=== PATIENT | female | born 1990 | race Caucasian/White ===

== ENCOUNTER 2020-08-16 07:13 | Outpatient (CLI) | payer OTHER, SELFPAY ==
[2020-08-16 08:27] LABS: Hemoglobin A1C 4.8 % (<5.7)
[2020-08-16 08:30] LABS: Beta HCG Quantitative < 2.39 mIU/ML
[2020-08-16 08:44] LABS: Thyroid Stimulating Hormone 0.624 uIU/mL (0.465-4.680)
[2020-08-18 05:59] LABS: Insulin Level Total 4.2 uIU/mL (<=19.6)
[2020-08-20 17:58] LABS: DHEA-Sulfate 306 mcg/dL (18-391)
[2020-08-21 08:41] LABS: Testosterone Total 57 ng/dL (2-45)
[2020-08-23 04:42] LABS: Prolactin 6.4 ng/mL (***)
== END 2020-08-16 07:14 | disposition home or self-care (01) ==
PROVIDERS: Visit Provider Obstetrics & Gynecology
DX: N91.2 Amenorrhea, unspecified (principal)
CPT/HCPCS: 36415; 82627; 83036; 83498; 83525; 84146; 84403; 84443; 84702

== ENCOUNTER 2020-10-08 07:26 | Outpatient (CLI) | payer OTHER, SELFPAY | END 2020-10-08 07:27 | disposition home or self-care (01) | PROVIDERS: Visit Provider Obstetrics & Gynecology | DX: Z31.41 Encounter for fertility testing (principal) | CPT/HCPCS: 36415; 84144 ==

== ENCOUNTER 2020-11-28 11:41 | Outpatient (CLI) | payer OTHER, SELFPAY ==
[2020-12-02 08:59] LABS: Progesterone 17.7 ng/mL (***)
== END 2020-11-28 11:42 | disposition home or self-care (01) ==
LOC: ANHLAB 11:43
PROVIDERS: Visit Provider Obstetrics & Gynecology
DX: Z31.41 Encounter for fertility testing (principal)
CPT/HCPCS: 36415; 84144

== ENCOUNTER 2021-02-11 12:15 | Outpatient (CLI) | payer OTHER, SELFPAY ==
[2021-02-15 13:53] LABS: Progesterone 0.6 ng/mL (***)
== END 2021-02-11 12:16 | disposition home or self-care (01) ==
LOC: CHSLAB 12:17
PROVIDERS: Visit Provider Obstetrics & Gynecology
DX: Z31.41 Encounter for fertility testing (principal)
CPT/HCPCS: 36415; 84144

== ENCOUNTER 2021-03-25 11:00 | Outpatient (CLI) | payer OTHER, SELFPAY ==
[2021-03-28 07:18] LABS: Progesterone 1.5 ng/mL (***)
== END 2021-03-25 11:01 | disposition home or self-care (01) ==
LOC: CHSLAB 11:02
PROVIDERS: Visit Provider Obstetrics & Gynecology
DX: Z31.41 Encounter for fertility testing (principal)
CPT/HCPCS: 36415; 84144

== ENCOUNTER 2021-05-02 09:21 | Outpatient (CLI) | payer OTHER, SELFPAY ==
[2021-05-05 07:01] LABS: Progesterone 2.8 ng/mL (***)
== END 2021-05-02 09:22 | disposition home or self-care (01) ==
LOC: CHSLAB 09:23
PROVIDERS: Visit Provider Obstetrics & Gynecology
DX: Z31.41 Encounter for fertility testing (principal)
CPT/HCPCS: 36415; 84144

== ENCOUNTER 2023-03-23 13:39 | Observation (INO) | payer BC, SELFPAY ==
[2023-03-23 14:45] VITALS: BP 118/82; PULSE 92
--- NOTE | 2023-03-23 15:00 | OBADM ---
This patient, Toña Rose, admitted to the OB room Labor/Delivery/Recovery 106 for observation. Patient/family oriented to hospital policies and general routines including ID bracelet, bed and alarms, visiting hours, pain management, procedures, bathroom and other care routines, personal items, smoking policy, room service/diet, and visiting hours. Patient/Family are encouraged to report perceived risks to care and to ask questions if they do not understand what they are told or what they should do.
--- NOTE | 2023-04-22 00:04 | PM.OBTRLD ---
OB - Triage/Final Diagnosis Visit Information Comments/Additional reasons for admission: I have assessed the risk for this patient, Toña Rose, and determined that she would benefit from observation care. Final Diagnosis (1) False labor: Code(s): O47.9 - False labor, unspecified Status: Acute
== END 2023-03-23 15:04 | disposition home or self-care (01) ==
LOC: ANHLDR 14:46
PROVIDERS: Admitting Provider Obstetrics & Gynecology; Visit Provider Obstetrics & Gynecology
DX: O47.9 False labor, unspecified (principal); Z3A.40 40 weeks gestation of pregnancy
CPT/HCPCS: G0378; G0379

== ENCOUNTER 2023-03-24 04:42 | Inpatient (IN) | payer BC, SELFPAY ==
[2023-03-24] VITALS (133 sets, daily range): BP systolic 100–145; BP diastolic 54–92; PULSE 48–124; RESP 16; TEMP 36.5–37.3; O2SAT 77–100; BMI 34.7
--- NOTE | 2023-03-24 04:42 | LDADM ---
This patient, Toña Rose, was admitted to Labor/Delivery/Recovery 102 on 03/24/23 at 04:42. Plans for labor, pain management and were discussed with patient. Patient/family oriented to hospital policies and general routines including ID bracelet, bed and alarms, visiting hours, pain management, procedures, bathroom and other care routines, personal items, smoking policy, room service/diet and guest tray routines, security routines, and visiting hours. Patient/Family are encouraged to report perceived risks to care and to ask questions if they do not understand what they are told or what they should do. See OBIX for further documentation.
[2023-03-24] MEDS: LACTATED RINGERS 1,000 ML 125 ML IV CONT ×2 (05:05→05:51)
[2023-03-24 05:10] LABS: Basophils Absolute Auto 0.1 K/mm3 (0.0-0.1); Basophils Percent Auto 0.3 % (0.2-1.2); Hematocrit 43.3 % (37.0-47.0); Hemoglobin 14.4 g/dL (12.0-15.0); Immature Granulocyte Absolute 0.16 K/mm3 (0.00-0.031); Immature Granulocyte Percent A 0.8 % (0-0.5); Immature Platelet Fraction Pct 18.6 % (0.9-11.2); Lymphocytes Absolute Auto 1.29 K/mm3 (0.9-3.2); Lymphocytes Percent Auto 6.2 % (18.3-44.2); Mean Corpuscular HGB Conc 33.3 g/dl (32-36); Mean Corpuscular Hemoglobin 30.6 pg (26-34); Mean Corpuscular Volume 92.1 fl (80-100); Mean Platelet Volume 13.1 fl (7.4-10.4); Monocytes Absolute Auto 0.6 K/mm3 (0.1-0.6); Monocytes Percent Auto 2.9 % (2.6-8.5); Neutrophils Absolute Auto 18.6 K/mm3 (1.3-6.7); Neutrophils Percent Auto 89.8 % (45.5-73.1); Platelet Count Result 208 k/mm3 (150-375); Red Cell Distribution Width 13.1 % (11.5-14.5); White Blood Count 20.7 K/mm3 (4.5-10.0)
--- NOTE | 2023-03-24 05:31 | WPDANESEPPF ---
Anes - Initial Pre Proc Eval Procedure: Labor Epidural Date/Time: 03/24/23 05:31 Surgeon: Tee Rosenberg MD Pre Op Diagnosis: Labor pain Pre Op Diagnosis: Bleeding, Contractions Patient Data Age: 32 Gender: F Height: 1.57 m Weight: 86 kg Last Vital Signs Temp 36.6 C 03/24/23 05:13 Pulse 88 03/24/23 05:16 BP 133/75 03/24/23 05:16 O2 Del Method Room Air 03/24/23 05:05 Allergies Allergy/AdvReac Type Severity Reaction Status Date / Time No Known Allergies Allergy Verified 02/19/23 12:32 Home Medications Medication Instructions Recorded Confirmed Type prenat.vits,felipe,[id number]-vhqco 1 tablet 02/19/23 History Laboratory Tests 03/24/23 05:03 WBC 20.7 H K/mm3 (4.5-10.0) RBC 4.70 M/mm3 (4.2-5.4) Hgb 14.4 g/dL (12.0-15.0) Hct 43.3 % (37.0-47.0) MCV 92.1 fl (80-100) MCH 30.6 pg (26-34) MCHC 33.3 g/dl (32-36) RDW 13.1 % (11.5-14.5) Plt Count 208 k/mm3 (150-375) MPV 13.1 H fl (7.4-10.4) Immature Gran % (Auto) 0.8 H % (0-0.5) Neut % (Auto) 89.8 H % (45.5-73.1) Lymph % (Auto) 6.2 L % (18.3-44.2) [place] % (Auto) 2.9 % (2.6-8.5) Eos % (Auto) 0.0 % (0-4.4) Baso % (Auto) 0.3 % (0.2-1.2) Lymph # (Auto) 1.29 K/mm3 (0.9-3.2) [place] # (Auto) 0.6 K/mm3 (0.1-0.6) Eos # (Auto) 0.0 K/mm3 (0-0.3) Baso # (Auto) 0.1 K/mm3 (0.0-0.1) Abs Immat Gran (auto) 0.16 H K/mm3 (0.00-0.031) Absolute Neuts (auto) 18.6 H K/mm3 (1.3-6.7) Absolute Nucleated RBC 0.0 K/mm3 (0.0-0.012) Nucleated RBC % 0.0 % (0.0-0.2) % Immature Plt Fraction 18.6 H % (0.9-11.2) RPR Pending Patient hx anesthesia problems: none Family hx anesthesia problems: none Results Review: All pre-operative results and documents have been reviewed as part of the pre-operative evaluation. [facility] Family History Family History Grandparent Colon cancer Social History Social History Smoking status: Never smoker Second hand tobacco smoke exposure: No Substance use: never Lack of Transportation: No Lack of Food: Never True Current Housing: I Have Housing Concerned About Future Housing: No Difficulty Paying Gas/Electric Bills: No Difficulty Paying for Meds: No Currently Unemployed: No Education: Bachelor's Degree Difficulty w/ Childcare or Family Care: No Spiritual care concerns: No Anes - Eval Final PreProcedure Day of Procedure 03/24/23 05:31 Patient weight: normal Heart: regular rate and rhythm Lungs: clear to auscultation ASA classification: II Results Review: All pre-operative results and documents have been reviewed as part of the pre-operative evaluation. Informed Consent: The patient's anesthetic plan and its attendant risks and benefits were discussed with the patient/family/POA. Questions were solicited and answers provided to the satisfaction of the patient/family/POA.
--- NOTE | 2023-03-24 05:52 | WPDANESEPN ---
Anes - Epidural Procedure Note Date/Time: 03/24/23 05:52 Consent: I have discussed with the patient/family/POA, the placement of an epidural catheter and the use of epidural narcotic/local anesthetic for labor analgesia and/or postoperative pain management, including associated potential risks, benefits, complications and side effects. I have discussed alternative methods of labor analgesia and/or postoperative pain management. The patient/family/POA, understand(s) and wish(es) to proceed with epidural narcotic/local anesthetic for labor analgesia and/or postoperative pain management. Time-Out: A pre-procedural Time-Out was completed immediately before starting the procedure and confirmed: Patient Identification, Site, Procedure, Patient Position and the Availability of Requisite Equipment. Clinical Indications: Labor pain Epidural Insertion Note Patient position: sitting Skin prep: chlorhexidine and sterile drape Needle: 18g Tuohy-Schliff Catheter: 20g Unstyleted Technique: Loss of resistance. Level of insertion: L3/4 Catheter skin ashlee (cm): 10 Length in epidural space (cm): 5 Skin anesthesia: lidocaine 1% Test dose: 1.5% Lidocaine with 1:[id number] Epi, negative for subarachnoid Inj and negative for intravascular Inj Time of test dose: 05:40 Observations: tolerated well Complications: none
--- NOTE | 2023-03-24 07:52 | WPDOBADMIT ---
Obstetrics - Admit Note Admission Note: record reviewed. Additions to the history and/or subsequent changes in the physical findings follow. 32 y/o G1 at 40 3/7 weeks here with contractions. Cervix was 7 cm dilated on admission. She has an epidural and is now complete and pushing. GBS neg. AVSS NST reactive TOCO: contractions every 5 min ABD soft, nontender, gravid, vertex EXT nontender Cervix C/+1 A: IUP at term with labor. P: Pushing. Anticipate . Augment labor with oxytocin.
[2023-03-24] MEDS: OXYTOCIN 30 UNITS/NS 500 ML 30 UNITS/500 ML BAG 999 UNITS IV CONT (10:53)
--- NOTE | 2023-03-24 11:10 | PM.OBPRVD ---
OB - Delivery Note Procedure Delivery date: 03/24/23 Procedure: Vacuum-assisted vaginal delivery Excisional biopsies of small vulvar skin tags x 2 Induction method: None Delivery augmentation: Pitocin Delivery monitor: External FHT, External Uterine and Internal Uterine Route of delivery: vacuum extraction Laceration Description: Perineal - 2nd Degree Delivery repair: vicryl (3-0) Specimen: Yes (cord blood, vulvar skin tags) Quantitative Blood Loss (ml): 320 Anesthesia type: Epidural Disposition: PACU Complications: None Narrative: 32 y/o G1 at 40 3/7 weeks gestation who presented to the hospital with contractions. Her cervix was found to be 7 cm dilated. Labor was diagnosed. She received an epidural for pain control. She had SROM with clear fluid. Her labor progressed and her cervix dilated completely. Labor was augmented with IV oxytocin during the second stage. She pushed with good effort and, over 3 hours, brought the presenting part to the +2 of 3 station. At this time I offered VAVD. We reviewed risks, benefits and alternatives in detail. She and her elected to proceed. The Kiwi vacuum suction cup was applied to the vertex using the Dreifingergriff. The head was gently flexed. Over two contractions, and with no pop-offs, the head rotated from the ROP to the SONY position and easily delivered. The Kiwi was disconnected and the body delivered, followed by terminal meconium. The nose and mouth were bulb suctioned. After a delay, the cord was clamped and cut. The was handed off the field. Cord blood was collected. The placenta delivered spontaneously and was grossly normal in appearance. The usual 3 vessel cord was noted. A second degree midline perineal laceration was sustained. This was reapproximated using 3 0 Vicryl in the usual layered fashion. Excellent hemostasis resulted as did excellent reapproximation of the normal anatomy. Two skin tags, one measuring 3 x 2 mm, and the other 2 x 2 mm, on the left vulva were elevated with a forceps and sharply excised using scissors. They were passed off to be sent to pathology. There was minimal bleeding, so Band-aids were applied to the sites. Needle and instrument counts were correct. The patient was taken to recovery room in stable condition. The went to the nursery in stable condition. I was present and scrubbed for the entire delivery. Baby Date of : 03/24/23 Time of : 10:49 Weeks of gestation at delivery: 40 Infant gender: Female Weight (pounds): 7 Weight (ounces): 11 presentation: vertex position: Right Occiput Posterior Placenta delivery description: Spontaneous and Normal Configuration Cord Vessel Description: 3 Vessels and Delayed Cord Clamping score one minute: 6 score five minutes: 9
[2023-03-24] MEDS: OXYTOCIN 30 UNITS/NS 500 ML 30 UNITS/500 ML BAG 125 UNITS IV CONT (11:22)
--- NOTE | 2023-03-24 12:57 | P.DS_ITS ---
DS: Admitting Diagnosis Discharge Date 03/26/23 Admitting Diagnosis IUP at 40 3/7 weeks Labor DS: Discharge Diagnosis Discharge Diagnosis (1) Status post vacuum-assisted vaginal delivery: Code(s): Z87.59 - Personal history of other complications of , childbirth and the puerperium Status: Acute OB - DS: Summary OB Procedures : None OB Procedures Intrapartum: Vacuum extraction OB Procedures: : None Time Spent with Patient Time attestation: Total time spent providing and/or coordinating discharge services: DS: Data Data Completed and Pending Labs on day of discharge: Labs from last 24 hours 03/24/23 05:03 WBC 20.7 H RBC 4.70 Hgb 14.4 Hct 43.3 MCV 92.1 MCH 30.6 MCHC 33.3 RDW 13.1 Plt Count 208 MPV 13.1 H Immature Gran % (Auto) 0.8 H Neut % (Auto) 89.8 H Lymph % (Auto) 6.2 L [place] % (Auto) 2.9 Eos % (Auto) 0.0 Baso % (Auto) 0.3 Lymph # (Auto) 1.29 [place] # (Auto) 0.6 Eos # (Auto) 0.0 Baso # (Auto) 0.1 Abs Immat Gran (auto) 0.16 H Absolute Neuts (auto) 18.6 H Absolute Nucleated RBC 0.0 Nucleated RBC % 0.0 % Immature Plt Fraction 18.6 H RPR Pending Blood Type O Positive Antibody Screen Negative Discharge Plan Discharge Attending physician on discharge: Tee Rosenberg Discharging Clinician: Tee Rosenberg Patient Disposition: Home, Self-Care Activity: pelvic rest Diet: regular Discharge Instructions: Call or return if temperature above 100.4? F, increased abdominal pain, increased vaginal bleeding or any new problems. Stand Alone Forms: General Discharge Information Follow-up/Referrals: Tee Rosenberg MD [Physician] - 6 Weeks Discharge Medications: New ibuprofen 600 mg tablet 600 mg PO Q6H PRN (Reason: cramps) Qty: 30 0RF Continued prenat.vits,felipe,lqq-[id number] Tablet 1 tablet Date of admission: 03/24/23 04:42 Primary Care Provider: PHYSICIAN,ACCOUNTING POLICY CONSULTANT Admitting Provider: Tee Rosenberg Attending physician on admission: Tee Rosenberg Condition: Stable
[2023-03-24] MEDS: WITCH HAZEL 40 PADS 1 PAD TOPICAL (13:01)
[2023-03-24] MEDS: BENZOCAINE 20% AER SPR (*SP) 56 GM CAN 1 SPRAY TOPICAL (13:01)
--- NOTE | 2023-03-24 13:50 | PC.NURSE ---
Patient transferred to post room #292 via wheelchair. Support person present. Oriented to unit, room, information board, rooming in, admission packet and security measures. Patient verbalizes understanding.
[2023-03-24] MEDS: IBUPROFEN 600 MG TABLET PO (14:25)
[2023-03-24] MEDS: LANOLIN (LANSINOH) 7.5 GM CREAM 1 APPLIC TOPICAL (14:28)
[2023-03-24 14:55] LABS: Rapid Plasma Reagin Non-Reactive (NonReactive)
--- NOTE | 2023-03-24 15:56 | PC.NURSE ---
[id number] Introductions were made, then consulted with patient to assess needs related to . Mother has latched to the breast, however, infant is shallow on the nipple and mother states it is pinchy . Encouraged understanding of the benefits of skin to skin (demonstrating unwrapping infant and placing upright on her chest), stimulating with massage touch, changing positions to encourage wakefulness, how to watch for early feeding cues to reset and organize for effective . Reviewed positioning and ear, shoulder, hip alignment, supporting the breast to facilitate a deep latch, asymmetrical latch (off-center), leading with the chin with a big, open, wide gape and body close to mother. latched optimally to the right breast in cross cradle position. Infant latched shallow a few time, then encouraging mother to find the sandwich hold that helps infant get a mouthful was achieved. Education given to parents of how to visualize suck/swallow ratios and listen for drinking at the breast. Father of baby was shown ways to support the optimal latch, watch for good positioning, latch, stimulate infant to actively breastfeed and support mother. Infant was able to maintain latch without discomfort to mother. Nipple care reviewed with optimal latch and good positioning. Reviewed good handwashing when or touching the breast/nipples to prevent infection. Resources used to facilitate learning were used with the tool, mom and baby guide. Mother voiced understanding of skin to skin, stimulating with massage touch, responsive feedings, feeding on demand (aiming for 8-12 times in 24 hours, about every 2-3 hours), milk production, building/maintaining a milk supply, to call if infant does not latch, or if there is discomfort with . Resources provided for inpatient/outpatient with name written on the communication board and the mom/baby guide. Parents voiced understanding of information, demonstrated learning and will call if there is a request for assistance. Reported to primary RN.
[2023-03-25] MEDS: IBUPROFEN 600 MG TABLET PO ×3 (04:51→17:06)
[2023-03-25 05:40] LABS: Hematocrit 34.3 % (37.0-47.0); Hemoglobin 11.3 g/dL (12.0-15.0)
[2023-03-25] MEDS: DOCUSATE SODIUM 100 MG CAPSULE PO ×2 (07:46→17:06)
[2023-03-25] MEDS: MULTIVIT/MIN/PREN/FOL AC/IRON TABLET 1 TAB PO (07:46)
[2023-03-25] MEDS: ACETAMINOPHEN 325 MG TABLET 650 MG PO (07:47)
[2023-03-25 08:25] VITALS: BP 123/77; PULSE 85; RESP 16; TEMP 37.1; O2SAT 99
--- NOTE | 2023-03-25 15:14 | PM.OBPNVD ---
OB - PN: Subj Subjective Date/time seen: 03/25/23 15:14 Narrative: Pain OK. Had some urinary retention leading to barnes catheter placement, but the catheter has been withdrawn and she is voiding without difficulty. OB - PN: Obj Data Labs 03/25/23 04:45 Labs: Laboratory Results - last 24 hr 03/25/23 04:45 Hgb 11.3 L D Hct 34.3 L OB - PN A/P Plan Comments: A: PPD#1, doing well. P: Routine care. Exam Psych: Other: AVSS ABD soft, nontender, fundus firm EXT nontender
--- NOTE | 2023-03-25 15:43 | PC.NURSE ---
[id number] Consulted with patient to assess needs related to . Mother led conversation with her experience with feeding baby so far and there is evidence of some missed latches by evidence of purple bruising sheppard on her areola. One was present yesterday after the first , however, there are more today. Mother works well with her with encouragement. We reviewed the stimulating techniques of massage touch, position changes, checking the diaper and burping to peak wakefulness in the to breastfeed. Reviewed working with , supporting breast and how to protect the nipples with an optimal deep latch, good positioning, and good hand washing. Encouraged understanding the benefits of skin to skin, responding to feeding cues, frequencies of feeding 8-12 times in 24 hours (approximately 2-3 hours), duration of feedings, milk production, intake/output feeding sheet and signs of adequate intake encouraging swallowing at the breast. Reviewed positioning and alignment, supporting breast, off-centered (asymmetrical latch) and leading with the chin with big, open, wide gape. Infant latched optimally to the right breast in football position. Education given to mother of how to visualize suck/swallow ratios, listen for drinking at the breast which infant is demonstrating. was able to maintain latch without discomfort to mother. Nipple care reviewed with optimal latch and good positioning. Resources used to facilitate learning were used from the tool, mom and baby guide. Mother voiced understanding of the education shared, to call for assistance if the does not latch or if there is discomfort with . Reported to the primary RN.
[2023-03-25 21:11] VITALS: BP 118/83; PULSE 89; RESP 16; TEMP 36.9; O2SAT 99
[2023-03-26] MEDS: DOCUSATE SODIUM 100 MG CAPSULE PO (08:22)
[2023-03-26] MEDS: MULTIVIT/MIN/PREN/FOL AC/IRON TABLET 1 TAB PO (08:22)
[2023-03-26] MEDS: IBUPROFEN 600 MG TABLET PO (08:22)
[2023-03-26 08:55] VITALS: BP 113/69; PULSE 83; RESP 18; TEMP 36.8; O2SAT 98
--- NOTE | 2023-03-26 08:59 | PM.OBPNVD ---
OB - PN: Subj Subjective Date/time seen: 03/26/23 08:59 Narrative: Pain OK. Would like to go home. OB - PN: Obj Data Labs 03/25/23 04:45 OB - PN A/P Plan Comments: A: PPD#2, doing well. P: Home to f/u 6 weeks. Exam Psych: Other: AVSS ABD soft, nontender, fundus firm EXT nontender
--- NOTE | 2023-03-26 10:30 | PC.NURSE ---
Patient viewed the discharge video Mother & Baby Care, The First Two Weeks . Patient was given the opportunity and encouraged to ask questions. Patient verbalized understanding of information shared and has been given the mother/baby guide for home reference.
--- NOTE | 2023-03-26 14:52 | PC.NURSE ---
[id number] - Purposefully rounded to assess needs if any and patient was discharged to home and gone.
[2023-03-28 10:12] VITALS: BP 132/86; PULSE 101; RESP 18; TEMP 37; O2SAT 100
== END 2023-03-26 13:18 | disposition home or self-care (01) | DRG 768 ==
LOC: ANHLDR 12:59 → ANHOB2 13:52
PROVIDERS: Obstetrics & Gynecology; Admitting Provider Obstetrics & Gynecology; Visit Provider Obstetrics & Gynecology
DX: O99.72 Diseases of the skin and subcutaneous tissue complicating childbirth (principal); Z37.0 Single live birth; N90.89 Other specified noninflammatory disorders of vulva and perineum; Z3A.40 40 weeks gestation of pregnancy; O63.1 Prolonged second stage (of labor); O70.1 Second degree perineal laceration during delivery
CPT/HCPCS: 36415; 85014; 85018; 85025; 85055; 86592; 86850; 86900; 86901; 88305; A9270; J2590; J2795; J7120